=== PATIENT | male | born 1960 | race Asian ===

== ENCOUNTER 2018-05-24 13:11 | Emergency (ER) | payer MEDICARE ==
[2018-05-24 13:18] VITALS: BP 181/99
[2018-05-24] MEDS ORDERED: NORMODYNE PO ONE (13:50)
--- NOTE | 2018-05-24 13:50 | Emergency Department Report ---
ED General Adult HPI - General Chief complaint: Medical Clearance Stated complaint: HBP Time Seen by Provider: 05/24/18 13:41 Source: patient Mode of arrival: Ambulatory Limitations: No Limitations - History of Present Illness Initial comments: Mr. Willard is a 58-year-old male history of hypertension, lumbar degenerative disc disease status post back surgery who is currently at [facility] for alcoholism. Recently transferred from [facility]. He is originally from [place]. According to physician documentation that the patient provided to me, he needs blood pressure management. He denies any symptoms. Denies blurry vision, headache, chest pain. He just needs medication for blood pressure. I reviewed previous history and physical. Previous medications included lisinopril and hydrochlorothiazide. -: days(s) (2) Improves with: none Worsens with: none Associated Symptoms: denies other symptoms - Related Data Previous Rx's Medication Instructions Recorded Last Taken Type Lisinopril 20 mg PO DAILY #30 tablet 05/24/18 Unknown Rx hydroCHLOROthiazide [HCTZ] 25 mg PO QDAY 30 Days #30 tablet 05/24/18 Unknown Rx Allergies Allergy/AdvReac Type Severity Reaction Status Date / Time No Known Allergies Allergy Verified 05/24/18 13:14 ED Review of Systems ROS: Stated complaint: HBP Other details as noted in HPI Comment: All other systems reviewed and negative Constitutional: denies: fever, malaise Respiratory: denies: cough Cardiovascular: denies: chest pain ED Past Medical Hx - Past Medical History Previous Medical History?: Yes Hx Hypertension: Yes Hx Asthma: Yes Hx Tuberculosis: Yes Additional medical history: chronic back pain - Surgical History Additional Surgical History: back surgery - Social History Smoking Status: Current Every Day Smoker Substance Use Type: Alcohol - Medications Home Medications: Home Medications Medication Instructions Recorded Confirmed Last Taken Type Lisinopril 20 mg PO DAILY #30 tablet 05/24/18 Unknown Rx hydroCHLOROthiazide [HCTZ] 25 mg PO QDAY 30 Days #30 tablet 05/24/18 Unknown Rx ED Physical Exam - General Limitations: No Limitations General appearance: alert, in no apparent distress - Head Head exam: Present: atraumatic, normocephalic - Eye Eye exam: Present: normal appearance - ENT ENT exam: Present: mucous membranes moist - Neck Neck exam: Present: normal inspection. Absent: tenderness, meningismus - Respiratory Respiratory exam: Present: normal lung sounds bilaterally. Absent: respiratory distress, wheezes, rales, rhonchi - Cardiovascular Cardiovascular Exam: Present: regular rate, normal rhythm, normal heart sounds. Absent: bradycardia, tachycardia, systolic murmur, diastolic murmur, rubs, gallop - GI/Abdominal GI/Abdominal exam: Present: soft, normal bowel sounds. Absent: distended, tenderness, guarding - Rectal Rectal exam: Present: deferred - Extremities Exam Extremities exam: Present: normal inspection - Back Exam Back exam: Present: normal inspection - Neurological Exam Neurological exam: Present: alert, oriented X3 - Psychiatric Psychiatric exam: Present: normal affect, normal mood - Skin Skin exam: Present: warm, dry, intact, normal color. Absent: rash ED Course Vital Signs 05/24/18 13:14 Temperature 98.4 F Pulse Rate 75 Respiratory 18 Rate Blood Pressure 181/99 O2 Sat by Pulse 100 Oximetry ED Medical Decision Making - Medical Decision Making Ms. Willard presents with asymptomatic hypertensive urgency. He's been without medication for the last 2 days while transitioning from [facility] to [facility] rehabilitation program. He was given 1 dose by mouth labetalol here in the ED. I prescribed lisinopril and hydrochlorothiazide. Critical care attestation.: If time is entered above; I have spent that time in minutes in the direct care of this critically ill patient, excluding procedure time. ED Disposition Clinical Impression: Asymptomatic hypertensive urgency Disposition: DC-01 TO HOME OR SELFCARE Is pt being admited?: No Does the pt Need Aspirin: No Condition: Stable Instructions: Hypertension (ED) Additional Instructions: You have received first dose of medication here in the ED today. Please start taking prescribed medications hydrochlorothiazide and lisinopril tomorrow. Prescriptions: hydroCHLOROthiazide [HCTZ] 25 mg PO QDAY 30 Days #30 tablet Lisinopril 20 mg PO DAILY #30 tablet Referrals: EMIR CABRAL MD [Staff Physician] - 3-5 Days
== END 2018-05-24 13:56 | disposition home or self-care (01) ==
LOC: ED 13:11
DX: I16.0 Hypertensive urgency (principal); J45.909 Unspecified asthma, uncomplicated; G89.29 Other chronic pain; F17.200 Nicotine dependence, unspecified, uncomplicated
CPT/HCPCS: 99282

== ENCOUNTER 2018-05-29 16:20 | Emergency (ER) | payer MEDICARE ==
--- NOTE | 2018-05-29 18:20 | Emergency Department Report ---
Addendum entered and electronically signed by RAMSES OROPEZA PA 05/29/18 18:55: Case was discussed with Dr. London. He'll he is aware of the current blood pressure is aware of the previous treatments and visits. He agrees with the current therapy and his return to [place] Original Note: ED General Adult HPI - General Chief complaint: High BP Stated complaint: HYPERTENSIVE Time Seen by Provider: 05/29/18 18:04 Source: patient Mode of arrival: Ambulatory Limitations: No Limitations - History of Present Illness Initial comments: 58-year-old -[place] male with past medical history of hypertension as [facility] for reevaluation of his blood pressure. He was seen here on 05/24/2018, [facility], started on lisinopril 20 mg, along with chlorothiazide 25 mg and according to his records, she was was given clonidine 10.1 mg 1 tablet twice a day by Dr. Mcneill at another location. On 05/21/2018. Mr. Willard states been taking his medication, but blood pressures continued to be high, although he's been asymptomatic. Blood pressure has been ranging anywhere from the 160 to the 170s over 90s per Mr. Willard. On yesterday his primary doctor at the [facility] facility. Apparently increase his lisinopril to 40 mg. He denies any chest pain, palpitations, presyncope, visual changes, tinnitus, coryza, hemoptysis. -: Gradual, week(s) Radiation: non-radiation Severity scale (0 -10): 0 Consistency: constant Improves with: none Worsens with: none Associated Symptoms: denies other symptoms Treatments Prior to Arrival: none - Related Data Previous Rx's Medication Instructions Recorded Last Taken Type Lisinopril 20 mg PO DAILY #30 tablet 05/24/18 Unknown Rx hydroCHLOROthiazide [HCTZ] 25 mg PO QDAY 30 Days #30 tablet 05/24/18 Unknown Rx Allergies Allergy/AdvReac Type Severity Reaction Status Date / Time No Known Allergies Allergy Verified 05/24/18 13:14 ED Review of Systems ROS: Stated complaint: HYPERTENSIVE Other details as noted in HPI Constitutional: denies: chills, fever Eyes: denies: eye pain, eye discharge, vision change ENT: denies: ear pain, throat pain Respiratory: denies: cough, shortness of breath, wheezing Cardiovascular: denies: chest pain, palpitations Endocrine: no symptoms reported Gastrointestinal: denies: abdominal pain, nausea, diarrhea Genitourinary: denies: urgency, dysuria Musculoskeletal: denies: back pain, joint swelling, arthralgia Skin: denies: rash, lesions Neurological: denies: headache, weakness, paresthesias Psychiatric: denies: anxiety, depression Hematological/Lymphatic: denies: easy bleeding, easy bruising ED Past Medical Hx - Past Medical History Hx Hypertension: Yes Hx Asthma: Yes Hx Tuberculosis: Yes Additional medical history: chronic back pain - Surgical History Past Surgical History?: Yes Additional Surgical History: back surgery - Social History Smoking Status: Current Every Day Smoker Substance Use Type: None - Medications Home Medications: Home Medications Medication Instructions Recorded Confirmed Last Taken Type Lisinopril 20 mg PO DAILY #30 tablet 05/24/18 Unknown Rx hydroCHLOROthiazide [HCTZ] 25 mg PO QDAY 30 Days #30 tablet 05/24/18 Unknown Rx ED Physical Exam - General Limitations: No Limitations General appearance: alert, in no apparent distress - Head Head exam: Present: atraumatic, normocephalic - Eye Eye exam: Present: normal appearance - ENT ENT exam: Present: mucous membranes moist - Neck Neck exam: Present: normal inspection - Respiratory Respiratory exam: Present: normal lung sounds bilaterally. Absent: respiratory distress - Cardiovascular Cardiovascular Exam: Present: regular rate, normal rhythm. Absent: systolic murmur, diastolic murmur, rubs, gallop - GI/Abdominal GI/Abdominal exam: Present: soft, normal bowel sounds - Rectal Rectal exam: Present: deferred - Extremities Exam Extremities exam: Present: normal inspection - Back Exam Back exam: Present: normal inspection - Neurological Exam Neurological exam: Present: alert, oriented X3 - Psychiatric Psychiatric exam: Present: normal affect, normal mood - Skin Skin exam: Present: warm, dry, intact, normal color. Absent: rash ED Course Vital Signs 05/29/18 16:30 Temperature 98.5 F Pulse Rate 70 Respiratory 18 Rate Blood Pressure 160/97 O2 Sat by Pulse 99 Oximetry Critical care attestation.: If time is entered above; I have spent that time in minutes in the direct care of this critically ill patient, excluding procedure time. ED Disposition Clinical Impression: HTN (hypertension) Disposition: TO HOME OR SELFCARE Is pt being admited?: No Does the pt Need Aspirin: No Condition: Stable Instructions: Hypertension (ED) Additional Instructions: 58-year-old male, hypertension medication, started on 05/21/2018 with clonidine 0.1 mg twice a day. Medication added on 05/24/2018 with lisinopril and hydrochlorothiazide with lisinopril been increased on yesterday. Blood pressure at this present time is 160/97. This time or not. Decrease or increase any current medications. It is not appropriate. Most of the medications he is on right now would take 2-3 weeks to have the appropriate blood pressure lowering effects. Clonidine can be modified at the discretion of your on-site physician is recommended that he obtain a primary care provider for further management. He is in no hypertensive crisis and asymptomatic at this present time. Neurologically intact. No adjustments at this time would justify. Plan to consider: 1. Mr. Willard is currently on clonidine 0.1 mg twice a day if this medication is not provided and the appropriate time frame, it will absolutely calls. Rebound hypertension which is harder to treat if this medication is being utilized and and plan to be continued. I will consider a Catapres patch. 2. May be beneficial to discontinue the clonidine and started on a calcium channel rasheed of a nondihydropyridines family for vasodilatory effects. 3. Just had adjustment of his lisinopril this medication. Takes 2-3 weeks before you would appreciate the hypertensive changes. 4. Recommend following up with on-site provider for further management is this issue will need to be monitored during the changes were more than welcome to help out and hypertensive crisis type type SITUATIONS, however, Mr. Willard does not meet this criteria at this present time and based on his accounts of his blood pressure has not met the criteria since last discharge from this facility
== END 2018-05-29 19:10 | disposition home or self-care (01) ==
LOC: ED 16:20
CPT/HCPCS: 99282